=== PATIENT | male | born 1950 | race Caucasian/White ===

== ENCOUNTER 2017-05-31 10:29 | Inpatient (IN) ==
[~2017-05-31 10:29] MED LIST: Lidocaine -MPF 2% 2 ML VIAL ONE
[2017-05-31] MEDS ORDERED: *HR* Remifentanil 2 MG VIAL IVP ONE ×2 (10:37→15:05)
[2017-05-31] MEDS ORDERED: Lidocaine -MPF 4% 5 ML AMPUL ONE (10:38)
[2017-05-31] MEDS ORDERED: *HR* Rocuronium Bromide 50 MG/5 ML VIAL ONE (10:38)
[2017-05-31] MEDS ORDERED: Dexamethasone 4 MG/ML VIAL ONE (10:38)
[2017-05-31] MEDS ORDERED: *HR* Phenylephrine 10 MG/ML VIAL ONE (10:38)
[2017-05-31] MEDS ORDERED: Ondansetron 4 MG/2 ML VIAL ONE (10:38)
[2017-05-31] MEDS ORDERED: *HR* Succinylcholine 200 MG/10 ML VIAL IVP ONE (10:38)
[2017-05-31] MEDS ORDERED: Lidocaine -MPF 2% 2 ML VIAL ONE (10:38)
[2017-05-31] MEDS ORDERED: Lidocaine -MPF 1% 2 ML VIAL ID ONE (10:54)
[2017-05-31] MEDS ORDERED: Vancomycin 1,250 MG in D5% in Water 250 ML IVPB ONE ×3 (10:54→22:30)
[2017-05-31] MEDS ORDERED: Albuterol 2.5 MG/3 ML NEBULIZER IH ONE (10:54)
[2017-05-31] MEDS ORDERED: CeFAZolin Pre 2,000 MG/100 ML 2,000 MG/100 ML BAG IVPB ONE (10:54)
--- NOTE | 2017-05-31 10:54 | History & Physical Report ---
Date of Encounter: 05/31/17 Time of Encounter: 10:40 24 Hour HP Update - Instructions Instructions: If the History and Physical is less than 30 days old and was completed prior to A.M. admission and or procedure and has NOT been updated on calendar day of procedure please complete this update prior to performing procedure. - Update Patient reports changes in Medical Condition: No Changes in examination, assessment, or condition: No Changes in Medication: No Preop tests/diagnostics Reviewed: Yes Surgery Remains Indicated: Yes Consent for Planned Operative Procedure(s) Verified: Yes - Pre-Operative Checklist Preoperative Checklist Indicated: Yes Prophylactic Antibiotic Ordered: Yes (VANCOMYCIN DUE TO MRSA RISK) Home Medications Include Beta Kike: Yes Beta Kike Taken Today (Day of Surgery): Yes Beta Kike Taken Yesterday (Day Prior to Surgery): Yes
[2017-05-31] MEDS ORDERED: Ringers Solution, Lactated 1,000 ML IVC SCH (11:00)
[2017-05-31] MEDS ORDERED: *HR* FentaNYL (PF) 100 MCG/2 ML VIAL ONE ×2 (11:07→14:05)
[2017-05-31] MEDS ORDERED: *HR* Midazolam HCl 5 MG/5 ML VIAL IVP ONE (11:18)
[2017-05-31] MEDS ORDERED: *HR* Propofol 200 MG/20 ML VIAL IVP ONE (11:18)
--- NOTE | 2017-05-31 11:21 | Anesthesia Evaluation PreOp ---
Date of Encounter: 05/31/17 Time of Encounter: 11:10 - Past History Planned Operation: fem fem bypass graft Cardiac History: NH (Patient had an NH at some time, unknown to him. Underwent recent heart cath. 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 Significant HX Other Medical History: Diabetes Type II, GERD Anesthesia History: No Prior Anesthetic Complications, Past Anesthesia Alcohol Use: occasionally Drug use: marijuana Medications and Allergies Aspirin [Ecotrin] 325 mg PO DAILY 05/10/17 [History] Insulin Glargine [Lantus] 60 unit SQ DAILY 05/10/17 [History] OxyCODONE/APAP 5/325 [Percocet 5/325 MG] 1 each PO Q4HR PRN #30 tablet 05/10/17 [Rx] Clopidogrel Bisulfate [Plavix] 75 mg PO DAILY #30 tablet 05/22/17 [Rx] Metoprolol [Lopressor] 25 mg PO BID 05/31/17 [History] Allergies No Known Allergies Allergy (Verified 05/31/17 11:09) - Meds/Allergy Pre-op Review Medications Reviewed: Yes Allergies Reviewed: Yes Beta Blockers on Current Med List: Yes Anesthesia Results - Labs Laboratory Tests 05/18/17 05/22/17 05/22/17 12:08 14:53 14:53 Hgb 14.5 Plt Count 168 PT 12.6 H INR 1.2 Sodium 139 Potassium 3.9 Chloride 109 Carbon Dioxide 18 L BUN 14 Creatinine 0.89 - Imaging Additional studies: ECHO 56% EF, no ischemia, at target heart rate, hoowever a fixed perfusion defect identified. Underwent heart cath but only pharmacologic management intiated. Anesthesia Exam Selected Entries 05/31/17 10:58 Temperature 98.7 F Pulse Rate 89 Blood Pressure 145/72 O2 Sat by Pulse Oximetry 97 - HEENT Pupil (Motor): Pupils equal Mallampati: II (Full lo, single tooth in lower jaw.) Teeth: Edentulous Oral Opening: Greater than 3 - Cardiac Rhythm: Regular Murmur: None - Pulmonary Breath Sounds: bilateral Clear Anesthesia Assess/Plan ASA Score: 3 Modified Denton Scale for Level of Consciousness: Cooperative, oriented, and tranquil Anesthetic Plan: General Monitoring Plan: Standard Monitors, A-Line Recovery Plan: PACU
[2017-05-31] MEDS ORDERED: Heparin 1,000 UNITS/500 mL NS 1,000 ML ONE (11:35)
[2017-05-31 12:06] LABS: Hemoglobin A1C 5.4 %
[2017-05-31] MEDS ORDERED: *HR* Heparin 5,000 UNIT/ML VIAL ONE (13:19)
[2017-05-31] MEDS ORDERED: NiCARdipine 2.5 MG/10 ML Syringe IVPB ONE (13:20)
[2017-05-31] MEDS ORDERED: *HR* HYDROmorphone (PF) 1 MG/ML SYRINGE IVP PRN (13:27)
[2017-05-31] MEDS ORDERED: *HR* Labetalol 20 MG/4 ML SYRINGE IVP PRN ×2 (13:27→17:38)
[2017-05-31] MEDS ORDERED: Ondansetron 4 MG/2 ML VIAL IVP ONE (13:27)
--- NOTE | 2017-05-31 16:08 | Operative Note ---
Date of procedure: 05/31/17 Pre-op diagnosis: Peripheral vascular disease with rest pain Post-op diagnosis: same Procedure: 1. Right common and deep femoral endarterectomy. 2. Left iliofemoral and deep femoral endarterectomy. 3. Left to right femoral to femoral artery bypass with 6mm PTFE. 4. Right lower extremity angiogram. Complications: None Anesthesia: LULA Surgeon: Curtis Martinez Estimated blood loss (cc): 100 Specimen: right and left lower extremity plaque Condition: stable Disposition: PACU Procedure in Detail: Indications: The patient is a 67 year old male with severe peripheral vascular disease with right lower extremity rest pain and bilateral lower extremity disabling claudication. He underwent an angiogram and was found to have a right iliac artery occlusion and bilateral femoral to popliteal artery disease. The patient has been scheduled for revascularization to alleviate his symptoms and reduce his risk of limb loss. Procedure: The patient was identified in the preoperative area. The risks, benefits, and alternatives of the procedure were discussed. All questions were answered. The patient was taken to the operating room and placed in supine position on the operating room table. After the induction of general endotracheal anesthesia, he was cleaned and draped in normal sterile fashion. An oblique incision was made over the right groin sharply. Hemostasis was obtained with electrocautery. Through a process of blunt, sharp, and electrocautery dissection, the right femoral vessels were dissected circumferentially and surrounded with vessel loops. The patient received 5000 units of intravenous heparin and additional heparin throughout the procedure to maintain adequate anticoagulation. A large bore needle was used to cannulate the common femoral artery and a wire was passed through the needle. She needle was excahnged for a 6 tajik sheath. A retrograde angiogram was then performed via the sheath. This revealed an occluded right common iliac artery. Multiple attempts were made to cross the occlusion. However, the wire remained in the subintimal plane and would not enter the aortic lumen. Due to this, the decision was made to perform a left to right femoral to femoral artery bypass in order to restore inflow into the right femoral vessels. An oblique incision was then made over the left groin sharply. Hemostasis was obtained with electrocautery. Through a process of blunt, sharp, and electrocautery dissection, the left femoral vessels were dissected circumferentially and surrounded with vessel loops. A 6mm ring reinforced PTFE graft was tunneled between the right and left femoral incisions. A longitudinal arteriotomy was made in the left common femoral artery and extended into the deep femoral artery. Although pulsatile flow was noted from the external iliac artery, minimal retrograde flow was noted from the left deep femoral artery due to extensive stenositic common femoral and dep femoral artery plaque. Using a dental freer, a left distal external iliac artery endarterectomy, a left common femoral endarterectomy and a left deep femoral artery endarterectomy were then performed. The endpoints were inspected and no elevated flaps were noted. The lumen was flushed with heparinized saline. The graft was cut to fit the arteriotomy and then sutured in place with a running 6-0 Prolene. The vessels were flushed through the graft. Heparinized saline was infused into the graft lumen. The graft was clamped with an atraumatic clamp. Flow was restored in the left femoral vessels. The sheath and wire were removed from the right common femoral artery and the right external iliac artery was clamped. A longitudinal arteriotomy was then made in the common femoral artery and then extended into the deep femoral artery. The exposed a nearly occlusive right common and deep femoral artery plaque. Release of the veesl loop revealed minimal retrogade deep femoral artery flow. Using a dental freer, a right common femoral artery endarterectomy and a right deep femoral artery endarterectomy were performed. Proximal and distal endpoints were inspected and no elevated flaps were noted. Retrograde flow was noted from the deep femoral artery upon release of the loop. The vessel was flushed with heparinized saline. The graft was then cut to fit the arteriotomy. The graft was anastamosed with a running 6-0 Prolene. Prior to completing the anastamosis, the right femoral vessels were flushed through the graft anastamosis and heparin was infused into the lumen. The anastamosis was completed and flow was restored in the right lower extremity. Thrombin and gelfoam were used at the proximal anastamosis. Polyphasic signals were noted distal to the anastamoses. The wounds were irrigated with antibiotic-containing saline. Platelet rich and platelet poor plasma were infused into the wounds. Meticulous hemostasis was obtained throughout the wound with electrocautery. Wounds were reapproximated with layers of 2-0 and 3-0 Vicryl. Skin was reapproximated with 3-0 Monocryl. Sterile dressing was applied. The patient was extubated and taken to recovery room in stable condition.
[2017-05-31] MEDS ORDERED: *HR* Meperidine 25 MG/ML SYRINGE ONE (16:16)
--- NOTE | 2017-05-31 17:05 | Anesthesia Evaluation Post Op ---
Date of Encounter: 05/31/17 Time of Encounter: 17:05 - Vital Signs Vital Signs: Vital Signs/O2 Sat/Glucose, Most Current Temp Pulse Resp BP Pulse Ox 05/31/17 16:55 66 16 134/64 96 05/31/17 16:45 70 16 149/88 98 05/31/17 16:35 97.1 F L 75 16 141/84 97 05/31/17 16:25 82 16 145/70 95 05/31/17 16:15 88 20 158/72 99 05/31/17 16:05 97.0 F L 98 18 157/78 100 - Airway Airway: Non-obstructed - Cardiovascular Regular Rate - Mental Status Mental Status: Alert & Oriented, Answers Appropriately - Pain Pain Scale: 1 - Nausea Vomiting Nausea Vomiting: Not Present - Hydration Hydration: Ice chips, Pascal catheter - Discharge PostOp Status: Transfer Patient to floor (no anesthesia complications VSS)
[2017-05-31] MEDS ORDERED: Ondansetron 4 MG/2 ML VIAL IVP PRN (17:38)
[2017-05-31] MEDS ORDERED: Naloxone 0.4 MG/ML INJ IVP PRN (17:38)
[2017-05-31] MEDS ORDERED: Acetaminophen 325 MG TABLET PO PRN (17:38)
[2017-05-31] MEDS ORDERED: Dextrose Gel 15 GM PO PRN ×2 (17:38)
[2017-05-31] MEDS ORDERED: D5% in Water 1,000 ML IVC PRN (17:38)
[2017-05-31] MEDS ORDERED: *HR* HYDROcodone/Acet 5/325 mg TABLET PO PRN (17:38)
[2017-05-31] MEDS ORDERED: *HR* Dextrose 50 % in Water (Syg) 50 ML SYRINGE IVP PRN (17:38)
[2017-05-31] MEDS: *HR* OxyCODONE Immed Rel 5 MG TABLET PO PRN (17:51)
[2017-05-31] MEDS: *HR* Metoprolol 5 MG/5 ML VIAL IVP SCH ×2 (17:51→23:26)
[2017-05-31] MEDS: Insulin LISPRO 300 UNITS/3 ML VIAL SQ SCH (17:54)
[2017-05-31] MEDS: ceFAZolin 2,000 MG in D5% in Water 100 ML IVPB SCH (18:36)
[2017-05-31] MEDS: *HR* Morphine 2 MG/ML SYRINGE IVP PRN ×5 (18:42→23:25)
[2017-05-31] MEDS ORDERED: Insulin LISPRO 300 UNITS/3 ML VIAL SQ SCH (21:00)
[2017-06-01] MEDS: *HR* OxyCODONE Immed Rel 5 MG TABLET PO PRN (00:39)
[2017-06-01] MEDS: *HR* Morphine 2 MG/ML SYRINGE IVP PRN (00:40)
[2017-06-01] MEDS: ceFAZolin 2,000 MG in D5% in Water 100 ML IVPB SCH (01:06)
[2017-06-01 01:31] LABS: Basophils % 0.3 %; Eosinophils % 0.1 %; Hematocrit 38.3 % (37.5-50.1); Hemoglobin 12.9 g/dL (12.9-16.9); Immature Granulocytes % 0.5 % (0-4); Lymphocytes # 0.5 K/mcL (0.6-4.6); Lymphocytes % 5.1 %; Mean Corpuscular HGB Conc 33.7 g/dL (31.6-35.5); Mean Corpuscular Hemoglobin 30.9 pg (28.0-33.3); Mean Corpuscular Volume 91.8 fL (83.0-100.0); Monocytes # 0.5 K/mcL (0.0-1.3); Monocytes % 4.4 %; Neutrophils # 9.3 K/mcL (1.6-8.9); Platelet Count 177 K/mcL (140-400); Red Blood Count 4.17 M/mcL (4.19-5.50); Red Cell Distribution Width 13.4 % (11.5-14.5); Segmented Neutrophils % 89.6 %
[2017-06-01 01:45] LABS: BUN/Creatinine Ratio 14 (6-26); Blood Urea Nitrogen 17 mg/dL (8-26); Calcium 8.9 mg/dL (8.6-10.8); Carbon Dioxide 23 mEq/L (19-29); Chloride 104 mEq/L (98-109); Glucose 201 mg/dL (70-99); Osmolality,Calculated 289 (280-300); Potassium 4.3 mEq/L (3.5-4.5); Sodium 136 mEq/L (136-145); eGFR For African Americans > 60 (> 60); eGFR For Non-African Americans 59 (> 60)
[2017-06-01] MEDS: *HR* Metoprolol 5 MG/5 ML VIAL IVP SCH (05:59)
[2017-06-01] MEDS ORDERED: *HR* Heparin 5,000 UNIT/ML VIAL SQ SCH ×2 (06:00)
--- NOTE | 2017-06-01 07:42 | Discharge Summary ---
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 He reports that his rest pain has resolved. His feet are warm. He has pedal signals bilaterally. He will be discharged to day. (2) Atherosclerosis of lummi arteries of extremities with intermittent claudication, left leg Priority: Secondary Status: Chronic Comments: The patient has known bilateral superficial femoral artery occlusions. (3) Essential hypertension Priority: Secondary Status: Acute (4) Diabetes 1.5, managed as type 2 Priority: Secondary Status: Chronic Comments: The patient was counseled regasrding atheorsclerotic risk factor reduction. (5) Tobacco abuse Priority: Secondary Status: Chronic Comments: The patient was again counseled regarding the importance of smoking cessation. - Discharge Medications Prescriptions: RX: OxyCODONE/APAP 5/325 [Percocet 5/325 MG] 1 each PO Q4HR PRN #30 tablet PRN Reason: postoperative pain Home Medications: RX: Aspirin [Ecotrin] 325 mg PO DAILY 05/10/17 [History] RX: Insulin Glargine [Lantus] 60 unit SQ HS 05/10/17 [History] RX: Clopidogrel Bisulfate [Plavix] 75 mg PO DAILY #30 tablet 05/22/17 [Rx] RX: Metoprolol [Lopressor] 25 mg PO BID 05/31/17 [History] RX: OxyCODONE/APAP 5/325 [Percocet 5/325 MG] 1 each PO Q4HR PRN #30 tablet 06/01 [Rx] Allergies/Adverse Reactions: Allergies No Known Allergies Allergy (Verified 05/31/17 11:09) Date of admission: 05/31/17 17:31 Primary care physician: Tung Hernandez MD Procedure(s) Performed: Bilateral femoral artery endarterectomy and FEM-FEM bypass. Discharging clinician: Curtis Martinez Anticipated date of discharge: 06/01/17 - Patient Status Disposition: Home, Self-Care Condition: Good Functional capacity at discharge: independent ambulation Overall status at discharge: patient is back to baseline - Discharge Instructions Instructions: Oxycodone/Acetaminophen (By mouth), Peripheral Vascular Disorders (DC), Surgical Site Infections (GEN) Follow Up With: Curtis Martinez MD [Partnered Physician] - 07/12/17 1:30 pm Tung Hernandez MD [Primary Care Provider] - 06/08/17 11:30 am Additional Instructions: May remove bandage and shower on 06/02/17. Wash wounds gently and pat to dry. Apply dry gauze to wounds daily for 7 days. No tub baths or swimming until 06/29/17. Call Dr. Martinez at [phone] with questions or concerns. - Diet and Activity Activity: increase activity as tolerated Diet: diabetic diet - Hospital Course Hospital course: Mr. Escalona is a 67 year old male who was admitted on 05/31/17 and then taken to the operating room for a FEM-FEM bypass and bilateral femoral endarterectomy. The patient reported improvement on postoperative day #1. He was hemodynamically stable, his feet were warm and his incisions were healing. He was discharged in stable condition without complication. - Time Spent with Patient Total time spent providing and/or coordinating discharge services: Exam Vital Signs, Last 4 Hours Temp Pulse Resp BP Pulse Ox 06/01/17 07:32 98.4 F 75 17 103/60 95 General: Present: Conversant HEENT: Present: Pupils equal Neck: Absent: JVD Cardiac: Present: Reg Rate and Rhythm Lungs: Present: Normal Breath Sounds, No Wheeze, Rales, Rhonchi Neuro: Present: Alert and responsive, No focal deficits noted, Motor nerves grossly intact, Sensory nerves grossly intact Abdomen: Present: Soft, Non-tender Vascular: Present: Normal capillary refill, Pulse, diminished (pedal signals biphasic bilaterally), Color/Temperature (warm), Surgical incisions (no hematoma ). Absent: Cyanosis, Edema Skin: Present: No rashes noted on visualized skin - VTE Documentation of Mechanical Device: Intermittent pneumatic compression device
[2017-06-01] MEDS: Insulin LISPRO 300 UNITS/3 ML VIAL SQ SCH (07:56)
[2017-06-01] MEDS ORDERED: Aspirin Enteric Coated 325 MG Tablet PO SCH (09:00)
[2017-06-01 11:09] VITALS: BP 95/55
== END 2017-06-01 12:01 | disposition home or self-care (01) | DRG 272 ==
LOC: SAMDAY 10:29 → 2NNU 17:31
PROVIDERS: ADMIT Surgery; ATTEND Surgery

== ENCOUNTER 2018-08-30 06:00 | Inpatient (IN) ==
[~2018-08-30 06:00] MED LIST changes: -Lidocaine -MPF 2% 2 ML VIAL ONE; +Vancomycin 1,000 MG, Sodium Chloride IRRigation 1,000 ML IR ONE
[2018-08-30] MEDS ORDERED: CeFAZolin Syr 2,000MG/20 ML 2,000 MG/20 ML SYRINGE IVPB ONE (06:28)
[2018-08-30] MEDS ORDERED: Albuterol 2.5 MG/3 ML NEBULIZER IH ONE (06:28)
[2018-08-30] MEDS ORDERED: Albuterol 2.5 MG/3 ML NEBULIZER ONE (06:32)
[2018-08-30] MEDS ORDERED: *HR* FentaNYL (PF) 100 MCG/2 ML VIAL ONE ×2 (07:00→10:15)
[2018-08-30] MEDS ORDERED: Ondansetron 4 MG/2 ML VIAL ONE (07:00)
[2018-08-30] MEDS ORDERED: Lidocaine -MPF 2% 2 ML VIAL ONE (07:00)
[2018-08-30] MEDS ORDERED: *HR* Propofol 200 MG/20 ML VIAL IVP ONE (07:00)
[2018-08-30] MEDS ORDERED: *HR* Succinylcholine 200 MG/10 ML VIAL IVP ONE (07:00)
[2018-08-30] MEDS ORDERED: Lidocaine -MPF 4% 5 ML AMPUL ONE (07:03)
[2018-08-30] MEDS ORDERED: Dexamethasone 4 MG/ML VIAL ONE (07:03)
[2018-08-30] MEDS ORDERED: Lidocaine -MPF 0.5% 50 ML VIAL ONE (07:06)
[2018-08-30] MEDS ORDERED: *HR* Norepinephrine 4 MG/4 ML VIAL IVC ONE (07:06)
[2018-08-30] MEDS ORDERED: *HR* Vasopressin 20 UNIT/ML VIAL ONE (07:06)
--- NOTE | 2018-08-30 07:13 | Anesthesia Evaluation PreOp ---
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 Significant HX Other Medical History: Diabetes Type II, GERD Anesthesia History: No Prior Anesthetic Complications, Past Anesthesia Alcohol Use: rarely Drug use: marijuana Medications and Allergies Aspirin [Ecotrin] 325 mg PO DAILY 05/10/17 [History] metFORMIN [Glucophage] 1,000 mg PO BID 10/31/17 [History] Basaglar Kwikpen U-100 60 units SQ DAILY 08/30/18 [History] Fenofibrate Nanocrystallized [Triglide] 160 mg PO DAILY 08/30/18 [History] 3 Allergy/AdvReac Type Severity Reaction Status Date / Time No Known Allergies Allergy Verified 02/06/18 15:01 - Meds/Allergy Pre-op Review Medications Reviewed: Yes Allergies Reviewed: Yes Beta Blockers on Current Med List: No Anesthesia Results - Labs Laboratory Tests 01/26/17 08/27/18 08/27/18 09:38 15:36 15:36 WBC Hgb Hct Plt Count PT 11.6 INR 1.0 APTT 32.9 Sodium 138 Potassium 4.4 Chloride 108 H Carbon Dioxide 24 BUN 24 H POC Creatinine 1.30 Creatinine 1.37 H Est GFR (Non-Af Amer) 51 L Hemoglobin A1c 08/27/18 08/27/18 15:36 15:36 WBC 6.4 Hgb 14.1 Hct 43.1 Plt Count 210 PT INR APTT Sodium Potassium Chloride Carbon Dioxide BUN POC Creatinine Creatinine Est GFR (Non-Af Amer) Hemoglobin A1c 6.4 H - Imaging EKG: report reviewed (SINUS RHYTHM INFERIOR MYOCARDIAL INFARCTION, PROBABLY OLD) , image reviewed Additional studies: LEFT HEART CATH 05/2017 Stent w/ PTCA Single Major Vessel Indications: Abnormal Test - Stress, Pre op clearance Impressions: There is severe two vessel coronary artery disease. The left ventricle is normal and has mildly abnormal contractility EF 45% Patient had successful PTCA/Drug-Eluting Stent placement in the mid LAD. Coronary Dominance: right Lesion Findings/Interventions * Left Main Coronary Artery The LMCA is angiographically free of disease. * Left Anterior Descending There is a 20 mm long, 80% stenosis in the Mid LAD. The lesion has a KERWIN flow of 3. An intervention was performed on the Mid LAD with a final stenosis of 0%. There were no lesion complications. The final KERWIN flow was 3. * Circumflex The Circumflex is angiographically free of significant disease. The 1st Marginal is angiographically free of significant disease. * Right Coronary Artery There is a 80% stenosis in the Proximal RCA. There is a 95% stenosis in the Mid RCA. The lesion has collaterals which feed from left to right. There is a 95% stenosis in the Distal RCA. The lesion has collaterals which feed from left to right. Mid RCA and Distal RCA is one long diseased segment IMPRESSION: 1. Atherosclerosis with no abdominal aortic aneurysm. 2. Chronic right iliac arterial system occlusion. Prior bifemoral bypass with complete bypass occlusion. 3. Bilateral superficial femoral/popliteal artery occlusion with profunda femoral artery collaterals resulting in reconstitution of the distal popliteal artery. There is right lower extremity three-vessel runoff to the ankle and two-vessel runoff to the foot. Left lower extremity three-vessel runoff to the foot. 4. Severe hepatic steatosis. Cholelithiasis without evidence of acute cholecystitis or biliary obstruction. 5. Nonspecific borderline mildly enlarged upper abdominal lymph nodes. The patient has a history of lymphoma. The lymph nodes are stable compared to a prior PET/CT 08/20/2014. 6. Mild symmetric plantar feet muscular atrophy consistent with polyneuropathy.. Anesthesia Exam Vital Signs/O2 Sat/Glucose, Most Recent Temp Pulse Resp BP Pulse Ox 98.0 F 86 18 148/72 97 08/30/18 06:26 08/30/18 06:26 08/30/18 06:49 08/30/18 06:49 08/30/18 06:49 Blood Glucose* 125 Height: 1.7 m Weight: 84 kg NPO (# of Hours): > 8 hr - HEENT Pupil (Motor): Pupils equal Mallampati: II Teeth: Missing, Poor dentition Oral Opening: Greater than 3 - CRATE REPAIRER LOC: Oriented CRATE REPAIRER Motor: Normal RUE, Normal LUE, Normal RLE, Normal LLE, Normal Face CRATE REPAIRER Sensory: Normal: RUE, LUE, RLE, LLE, Face - Cardiac Rhythm: Regular Murmur: None - Pulmonary Breath Sounds: bilateral Clear Respiratory Effort: Symmetrical Anesthesia Assess/Plan ASA Score: 4 Modified Denton Scale for Level of Consciousness: Cooperative, oriented, and tranquil Anesthetic Plan: General Monitoring Plan: Standard Monitors, A-Line Recovery Plan: PACU
[2018-08-30] MEDS ORDERED: Acetaminophen IV 1,000 MG/100 ML INFUS..BTL IVPB ONE (07:17)
[2018-08-30] MEDS ORDERED: Famotidine 20 MG/2 ML VIAL IVP ONE (07:17)
[2018-08-30] MEDS ORDERED: Heparin 1,000 UNITS/500 mL 1,500 ML ONE (07:25)
[2018-08-30] MEDS ORDERED: Vancomycin 1,000 MG VIAL ONE (07:25)
[2018-08-30] MEDS ORDERED: Lidocaine 1% 20 ML MDV ONE (07:25)
--- NOTE | 2018-08-30 07:28 | History & Physical Report ---
Date of Encounter: 08/30/18 Time of Encounter: 07:20 24 Hour HP Update - Instructions Instructions: If the History and Physical is less than 30 days old and was completed prior to A.M. admission and or procedure and has NOT been updated on calendar day of procedure please complete this update prior to performing procedure. - Update Patient reports changes in Medical Condition: No Changes in examination, assessment, or condition: No Changes in Medication: No Preop tests/diagnostics Reviewed: Yes Surgery Remains Indicated: Yes Consent for Planned Operative Procedure(s) Verified: Yes - Pre-Operative Checklist Preoperative Checklist Indicated: Yes Prophylactic Antibiotic Ordered: Yes (vancomycin due to MRSA risk) Home Medications Include Beta Kike: No Beta Kike Taken Today (Day of Surgery): No Beta Kike Taken Yesterday (Day Prior to Surgery): No Is VTE Prophylaxis Indicated?: Yes
[2018-08-30] MEDS ORDERED: Aspirin 81 MG TAB.CHEW PO ONE (07:30)
[2018-08-30] MEDS ORDERED: KETAMINE HCL 50 MG/ML SYRINGE IV ONE (07:35)
[2018-08-30] MEDS: Ringers Solution, Lactated 1,000 ML IVC SCH ×2 (07:42→11:18)
[2018-08-30] MEDS ORDERED: *HR* Midazolam HCl 2 MG/2 ML VIAL ONE (07:43)
[2018-08-30] MEDS ORDERED: *HR* PHENYLEPHRINE 1,000 MCG/10 ML SYRINGE IVP ONE (08:13)
[2018-08-30] MEDS ORDERED: *HR* Phenylephrine 10 MG/ML VIAL ONE (08:29)
[2018-08-30] MEDS ORDERED: *HR* Heparin 5,000 UNIT/ML VIAL ONE (09:25)
[2018-08-30] MEDS ORDERED: *HR* HYDROmorphone (PF) 1 MG/ML SYRINGE IVP PRN (09:31)
[2018-08-30] MEDS ORDERED: *HR* OxyCODONE Immed Rel 5 MG TABLET PO PRN ×2 (09:31→11:41)
[2018-08-30] MEDS ORDERED: *HR* Promethazine 25 MG/ML VIAL IVP PRN (09:31)
[2018-08-30] MEDS ORDERED: *HR* Labetalol 20 MG/4 ML SYRINGE IVP PRN ×2 (09:31→11:41)
[2018-08-30] MEDS ORDERED: *HR* Meperidine 25 MG/ML SYRINGE IVP PRN (09:31)
[2018-08-30] MEDS ORDERED: Ondansetron 4 MG/2 ML VIAL IVP ONE (09:31)
--- NOTE | 2018-08-30 10:49 | Operative Note ---
Date of procedure: 08/30/18 Pre-op diagnosis: Peripheral vascular disease with disabling claudication Post-op diagnosis: same Procedure: Femoral-femoral bypass graft thrombectomy with revision of the right femoral anastomosis. Complications: None Anesthesia: GETA Surgeon: Curtis Martinez Was there an engineer assistant present: No Estimated blood loss (cc): 100 Specimen: Graft thrombus Condition: stable Disposition: PACU Procedure in Detail: Indications: The patient is a 68-year-old male with a history of severe peripheral vascular disease. He is previously undergone a femoral to femoral artery bypass graft placement due to a right iliac artery occlusion. The patient presented with recurrent symptoms of disabling claudication and rest pain in the right foot. He was taken to the operating room for thrombectomy of his bypass graft with possible revision. Procedure: The patient was identified in the preoperative area. The risks, benefits and alternatives were discussed and all questions were answered. The patient was taken to the operating room and placed in the supine position on the operating room table. After the induction of general endotracheal anesthesia, the patient was cleaned and draped in the normal sterile fashion. An oblique incision was made sharply through his right groin scar overlying the femoral vessels. Hemostasis was obtained with electrocautery. Through a process of blunt, sharp and electrocautery dissection, the right distal external iliac, deep and superficial femoral arteries were dissected and surrounded with vessel loops. The graft was also dissected and surrounded with vesel loops. The patient received a 5000 unit bolus of heparin. After waiting adequate time or the heparin to circulate, the vessels were occluded with the vessel loops. A longitudinal arteriotomy was made through the graft anastamosis and extended distally into the [place] common femoral artery. No flow was noted on release of the loops. A 4 [place] marcos catheter was passed through the bypass graft and inflated. It was withdrawn and some acute thrombus and chronic embolic material was retrieved. This was sent to pathology. A 5-[place] catheter was then passed through the graft and withdrawn. Brisk pulsatile flow was noted at this time. Additional passes of the catheter resulted in no additional thrombus or embolus proximally. A 4 [place] marcos catheter was passed distally and thrombus was retrieved from the deep femoral artery. Significant retrograde flow was noted from the deep femoral artery. The vessels and graft were flushed with heparin. Intimal hyperplasia was noted to be present along the anastamosis. Using a dental freer, an endarectomy was performed. A Hemashield patch was used to reapproximate the edges of the previously incised graft and [place] common femoral artery with a running 6-0 prolene. Prior to completing the patch, the vessels were flushed, the graft was flushed and heparin was infused into the lumen. Flow was restored in the [place] vessels and graft. Polyphasic signals were identified distal to the anastomosis. The wound was irrigated with antibiotic containing saline. Hemostasis was obtained with electrocautery. The wound was reapproximated with 2-0 and 3-0 vicryl. Skin was reapproximated with 3-0 Monocryl. Sterile dressings were applied. The patient was extubated and taken to the recover room in stable condition.
--- NOTE | 2018-08-30 11:12 | Anesthesia Evaluation Post Op ---
Date of Encounter: 08/30/18 Time of Encounter: 11:12 - Vital Signs Vital Signs: Vital Signs/O2 Sat/Glucose, Most Recent Temp Pulse Resp BP Pulse Ox 98.0 F 67 18 102/42 94 08/30/18 10:49 08/30/18 10:49 08/30/18 10:49 08/30/18 10:49 08/30/18 10:49 Blood Glucose* 152 - Lungs Lungs: Clear Ascult./Percussion - Airway Airway: Non-obstructed - Cardiovascular Regular Rate - Mental Status Mental Status: Alert & Oriented, Answers Appropriately - Pain Pain Scale: 2 - Nausea Vomiting Nausea Vomiting: Not Present - Hydration Hydration: NPO - Discharge PostOp Status: Transfer Patient to floor
[2018-08-30] MEDS ORDERED: *HR* HYDROcodone/Acet 5/325 mg TABLET PO PRN (11:41)
[2018-08-30] MEDS ORDERED: Acetaminophen 325 MG TABLET PO PRN (11:41)
[2018-08-30] MEDS ORDERED: *HR* Dextrose 50 % in Water (Syg) 50 ML SYRINGE IVP PRN (11:41)
[2018-08-30] MEDS ORDERED: Dextrose Gel 15 GM/37.5 ML TUBE PO PRN ×2 (11:41)
[2018-08-30] MEDS ORDERED: Naloxone 0.4 MG/ML INJ IVP PRN (11:41)
[2018-08-30] MEDS ORDERED: D5% in Water 1,000 ML IVC PRN (11:41)
[2018-08-30] MEDS ORDERED: Ondansetron 4 MG/2 ML VIAL IVP PRN (11:41)
[2018-08-30] MEDS ORDERED: 0.9 % Sodium Chloride 1,000 ML IVC SCH (11:41)
[2018-08-30] MEDS: *HR* Metoprolol 5 MG/5 ML VIAL IVP SCH ×3 (12:03→23:04)
[2018-08-30] MEDS: Insulin LISPRO 300 UNITS/3 ML VIAL SQ SCH ×2 (12:03→15:41)
[2018-08-30] MEDS ORDERED: Insulin LISPRO 300 UNITS/3 ML VIAL SQ SCH (21:00)
[2018-08-31] MEDS: *HR* Metoprolol 5 MG/5 ML VIAL IVP SCH (05:07)
[2018-08-31 05:42] LABS: Basophils % 0.2 %; Hematocrit 34.3 % (37.5-50.1); Immature Granulocytes % 0.6 % (0-4); Lymphocytes % 11.1 %; Mean Corpuscular HGB Conc 32.7 g/dL (31.6-35.5); Mean Corpuscular Hemoglobin 29.1 pg (28.0-33.3); Mean Corpuscular Volume 89.1 fL (83.0-100.0); Monocytes # 0.8 K/mcL (0.0-1.3); Monocytes % 8.7 %; Neutrophils # 6.8 K/mcL (1.6-8.9); Platelet Count 177 K/mcL (140-400); Red Blood Count 3.85 M/mcL (4.19-5.50); Red Cell Distribution Width 13.1 % (11.5-14.5); Segmented Neutrophils % 79.4 %
[2018-08-31 05:48] LABS: Hemoglobin 11.2 g/dL (12.9-16.9)
[2018-08-31] MEDS ORDERED: *HR* Heparin 5,000 UNIT/ML VIAL SQ SCH ×2 (06:00)
[2018-08-31 06:02] LABS: BUN/Creatinine Ratio 16 (6-26); Blood Urea Nitrogen 19 mg/dL (8-23); Calcium 8.4 mg/dL (8.6-10.3); Carbon Dioxide 21 mEq/L (23-29); Chloride 111 mEq/L (98-107); Glucose 146 mg/dL (70-105); Osmolality,Calculated 293 (280-300); Potassium 3.8 mEq/L (3.5-5.1); Sodium 139 mEq/L (136-145); eGFR For Non-African Americans 59 (> 60)
--- NOTE | 2018-08-31 07:29 | Discharge Summary ---
Orders not resulted at time of discharge: Pending orders 08/27/18 15:36 Red Blood Cells [BBK] Routine 08/30/18 10:11 Surgical Pathology [PTH] Routine Date of Encounter: 08/31/18 Time of Encounter: 08:15 - Discharge Diagnosis (1) Atherosclerosis of [place] arteries of extremities with intermittent claudication, left leg Priority: Primary Status: Chronic Comments: The patient is postoperative day #1 after a femoral to femoral artery bypass graft thrombectomy with revision. His incisions are healing well, his feet are warm, pedal signals are present bilaterally, his compartments are soft and his pain is well-controlled. He will be discharged today. (2) Tobacco abuse Priority: Secondary Status: Chronic (3) Essential hypertension Priority: Secondary Status: Acute (4) Diabetes 1.5, managed as type 2 Priority: Secondary Status: Chronic (5) Acute blood loss anemia Priority: Secondary Status: Acute Comments: The patient has acute expected postoperative blood loss anemia. He is hemodynamically stable without evidence of ongoing blood loss. - Hospital Course Hospital course: Mr. Escalona is a 68 year old male with a history of peripheral vascular disease with disabling claudication, coronary artery disease, chronic kidney disease, diabetes and tobacco abuse. The patient was admitted and taken to the operating room where he underwent a femoral to femoral artery bypass graft thrombectomy.. He tolerated the procedure well. On postoperative day #1 he was hemodynamically stable without evidence of ongoing blood loss. His exam was unremarkable. He was discharged home in stable condition on postoperative day #1 without complications. Time spent discussing smoking cessation with patient: 3 to 10 minutes - Time Spent with Patient Total time spent providing and/or coordinating discharge services: - Discharge Medications Prescriptions: RX: OxyCODONE/APAP 5/325 [Percocet 5/325 MG] 1 each PO Q6HR PRN 7 Days #25 tablet PRN Reason: Postoperative pain Home Medications: RX: Aspirin [Ecotrin] 325 mg PO DAILY 05/10/17 [History] RX: metFORMIN [Glucophage] 1,000 mg PO BID 10/31/17 [History] RX: Fenofibrate Nanocrystallized [Triglide] 160 mg PO DAILY 08/30/18 [History] RX: Insulin Glargine,Hum.rec.anlog [Giancarloaglar Kwikpen U-100] 60 unit SQ QPM 08/30/18 [History] RX: OxyCODONE/APAP 5/325 [Percocet 5/325 MG] 1 each PO Q6HR PRN 7 Days #25 tablet 08/31/18 [Rx] Allergies/Adverse Reactions: Allergy/AdvReac Type Severity Reaction Status Date / Time No Known Allergies Allergy Verified 02/06/18 15:01 Date of admission: 08/30/18 11:48 Primary care physician: Tung Hernandez MD Procedure(s) Performed: Femoral to femoral artery bypass graft thrombectomy with revision of the right femoral anastomosis. Discharging clinician: Curtis Martinez Anticipated date of discharge: 08/31/18 Exam Vital Signs, Last 4 Hours Temp Pulse Resp BP Pulse Ox 08/31/18 04:05 70 15 120/61 93 08/31/18 03:59 98.0 F General: Present: Conversant HEENT: Present: Pupils equal Cardiac: Present: Reg Rate and Rhythm Lungs: Present: Normal Breath Sounds Neuro: Present: Alert and responsive, No focal deficits noted Abdomen: Present: Soft Vascular: Present: Normal capillary refill, Surgical incisions (Clean, dry, no hematoma), Other (Pedal signals are present bilaterally). Absent: Cyanosis, Edema Skin: Present: No rashes noted on visualized skin - Patient Status Disposition: Home, Self-Care Condition: Good Functional capacity at discharge: independent ambulation Overall status at discharge: patient is back to baseline - Discharge Instructions Instructions: Oxycodone/Acetaminophen (By mouth), How to Stop Smoking (DC), Cigarette Smoking and Your Health (GEN), Femoropopliteal Bypass (DC), Peripheral Vascular Disorders (DC), Peripheral Vascular Disorders (GEN), Peripheral Vascular Disease, Certified Indoor Environmentalist (GEN) Follow Up With: Curtis Martinez MD [Partnered Physician] - 09/25/18 2:00 pm (Follow Up w/ Dr. Martinez) Tung Hernandez MD [Primary Care Provider] - - Diet and Activity Activity: increase activity as tolerated Diet: advance to your usual diet
[2018-08-31] MEDS ORDERED: Aspirin Enteric Coated 325 MG Tablet PO SCH (09:00)
[2018-08-31] MEDS ORDERED: Fenofibrate 54 MG TABLET PO SCH (09:00)
[2018-08-31] MEDS: Insulin LISPRO 300 UNITS/3 ML VIAL SQ SCH (09:27)
[2018-08-31 11:37] VITALS: BP 137/79
== END 2018-08-31 12:05 | disposition home or self-care (01) | DRG 253 ==
LOC: SAMDAY 06:00 → ICNU 11:48
PROVIDERS: ADMIT Surgery; ATTEND Surgery

== ENCOUNTER 2018-12-19 13:47 | Inpatient (IN) ==
[2018-12-19] MEDS ORDERED: CeFAZolin Syr 2,000MG/20 ML 2,000 MG/20 ML SYRINGE IVPB ONE (14:13)
[2018-12-19] MEDS ORDERED: Albuterol 2.5 MG/3 ML NEBULIZER IH ONE (14:15)
[2018-12-19] MEDS ORDERED: Ringers Solution, Lactated 1,000 ML IVC SCH ×2 (14:15→14:45)
--- NOTE | 2018-12-19 14:20 | Anesthesia Evaluation PreOp ---
Date of Encounter: 12/19/18 Time of Encounter: 14:18 - Past History Planned Operation: fem-fem thrombectomy Cardiac History: HTN, Hyperlipidemia, Cardiac Stent (stent RCA 2016), Other (PAD) Pulmonary History: Smoker (1.5 ppd x 40+ yrs), COPD (not O2 dependent) SOUND CONTROLLER History: Denies Any Significant HX Other Medical History: Renal (CKD), Diabetes Type II Anesthesia History: No Prior Anesthetic Complications, Past Anesthesia (multiple vascular sx) Alcohol Use: rarely Drug use: marijuana Medications and Allergies Aspirin [Ecotrin] 325 mg PO DAILY 05/10/17 [History] Fenofibrate Nanocrystallized [Triglide] 160 mg PO DAILY 08/30/18 [History] Insulin Glargine,Hum.rec.anlog [Basaglar Kwikpen U-100] 60 unit SQ QPM 08/30/18 [History] Atorvastatin [Lipitor] 40 mg PO HS 12/19/18 [History] Clopidogrel [Plavix] 75 mg PO DAILY 12/19/18 [History] Metformin HCl [Glucophage] 1,000 mg PO DAILY 12/19/18 [History] Metoprolol Succinate [Toprol Xl] 25 mg PO DAILY 12/19/18 [History] Pregabalin [Lyrica] 75 mg PO DAILY 12/19/18 [History] Allergy/AdvReac Type Severity Reaction Status Date / Time No Known Allergies Allergy Verified 12/19/18 14:18 - Meds/Allergy Pre-op Review Medications Reviewed: Yes Allergies Reviewed: Yes Beta Blockers on Current Med List: Yes If Beta Blockers taken, Date/Time (Last Dose taken): 12-18 at 1430 Anesthesia Results - Labs Laboratory Tests 12/18/18 12/18/18 11:04 11:04 Hgb 14.4 Hct 42.9 Plt Count 235 Sodium 139 Potassium 4.3 BUN 31 H Creatinine 1.48 H - Imaging Additional studies: CTA: IMPRESSION: 1. No significant change from the prior exam. 2. 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 3. Chronic thrombosis of the femoral-femoral bypass graft. 4. Chronic thrombosis of the superficial femoral artery bilaterally. 5. Patent left profunda femoral artery with collateral flow at the knee and patent three vessel runoff in the left leg and two vessel runoff in the left foot. 6. Right epigastric collateral vessel feeds the right profunda femoral artery with collateral flow at the knee and patent three vessel runoff in the right leg and two vessel runoff in the right foot. Anesthesia Exam Weight: 81kg NPO (# of Hours): 8 - HEENT Pupil (Motor): EOMI Mallampati: II Teeth: Missing, Poor dentition Oral Opening: Greater than 3 - SOUND CONTROLLER LOC: Oriented SOUND CONTROLLER Motor: Normal RUE, Normal LUE, Normal RLE, Normal LLE, Normal Face SOUND CONTROLLER Sensory: Normal: RUE, LUE, RLE, LLE, Face - Cardiac Rhythm: Regular Murmur: None - Pulmonary Breath Sounds: bilateral Clear (end exir wheezes b/l) Respiratory Effort: Symmetrical Anesthesia Assess/Plan ASA Score: 3 Level of consciousness: Cooperative, Oriented Anesthetic Plan: General Monitoring Plan: Standard Monitors Recovery Plan: PACU (agrees to GA. May place a-line if needed intraop)
[2018-12-19] MEDS ORDERED: Metoprolol XL (24 HR) Succ 25 MG TAB.ER.24H PO STA (14:24)
[2018-12-19] MEDS ORDERED: traMADol 50 MG TABLET PO PRN (14:33)
[2018-12-19] MEDS ORDERED: *HR* HYDROcodone/Acet 7.5/325 mg TABLET PO PRN (14:33)
[2018-12-19] MEDS ORDERED: *HR* HYDROmorphone (PF) 1 MG/ML SYRINGE IVP PRN (14:34)
[2018-12-19] MEDS ORDERED: *HR* Promethazine 25 MG/ML VIAL IVP PRN (14:34)
[2018-12-19] MEDS ORDERED: *HR* Rocuronium Bromide 50 MG/5 ML VIAL ONE (15:44)
[2018-12-19] MEDS ORDERED: Dexamethasone 4 MG/ML VIAL ONE (15:44)
[2018-12-19] MEDS ORDERED: Lidocaine -MPF 2% 2 ML VIAL ONE (15:44)
[2018-12-19] MEDS ORDERED: *HR* Succinylcholine 200 MG/10 ML VIAL IVP ONE (15:44)
[2018-12-19] MEDS ORDERED: Ondansetron 4 MG/2 ML VIAL ONE (15:44)
[2018-12-19] MEDS ORDERED: *HR* Propofol 200 MG/20 ML VIAL IVP ONE (15:45)
[2018-12-19] MEDS ORDERED: *HR* Midazolam HCl 2 MG/2 ML VIAL ONE (15:45)
[2018-12-19] MEDS ORDERED: *HR* FentaNYL (PF) 100 MCG/2 ML VIAL ONE ×2 (15:45→20:53)
[2018-12-19] MEDS ORDERED: Lidocaine -MPF 4% 5 ML AMPUL ONE (16:11)
[2018-12-19] MEDS ORDERED: Aminoglycoside Consult 1 EACH MC ONE (16:16)
[2018-12-19] MEDS ORDERED: Bupivacaine-MPF 0.25% 10 ML VIAL ONE (16:24)
[2018-12-19] MEDS ORDERED: Heparin 1,000 UNITS/500 mL 1,500 ML ONE (16:24)
[2018-12-19] MEDS ORDERED: Vancomycin 1,000 MG VIAL ONE (16:25)
[2018-12-19] MEDS ORDERED: Isovue-300 150 ML INFUS..BTL ONE (17:03)
--- NOTE | 2018-12-19 17:04 | History & Physical Report ---
Date of Encounter: 12/19/18 Time of Encounter: 16:40 24 Hour HP Update - Instructions Instructions: If the History and Physical is less than 30 days old and was completed prior to A.M. admission and or procedure and has NOT been updated on calendar day of procedure please complete this update prior to performing procedure. - Update Patient reports changes in Medical Condition: No Changes in examination, assessment, or condition: No Changes in Medication: No Preop tests/diagnostics Reviewed: Yes Surgery Remains Indicated: Yes Consent for Planned Operative Procedure(s) Verified: Yes - Pre-Operative Checklist Preoperative Checklist Indicated: Yes Prophylactic Antibiotic Ordered: Yes (vancomycin due to risk of MRSA) Home Medications Include Beta Kike: Yes Beta Kike Taken Today (Day of Surgery): Yes Beta Kike Taken Yesterday (Day Prior to Surgery): Yes Is VTE Prophylaxis Indicated?: Yes
[2018-12-19] MEDS ORDERED: *HR* PHENYLEPHRINE 1,000 MCG/10 ML SYRINGE IVP ONE (17:59)
[2018-12-19] MEDS ORDERED: *HR* Heparin 5,000 UNIT/ML VIAL ONE (19:16)
[2018-12-19] MEDS ORDERED: Neostigmine Methylsulfate 3 MG/3 ML SYRINGE ONE (20:09)
[2018-12-19] MEDS ORDERED: Protamine Sulfate 50 MG/5 ML VIAL IVP ONE (20:28)
--- NOTE | 2018-12-19 21:18 | Operative Note ---
Date of procedure: 12/19/18 Pre-op diagnosis: Peripheral vascular disease with ulceration Post-op diagnosis: same Procedure: 1. Left femoral artery to right femoral artery bypass graft thrombectomy with revision of the distal anastomosis. 2. Right deep femoral endarterectomy with Hemashield patch angioplasty. Complications: None Anesthesia: GETA Surgeon: Curtis Martinez Was there an assistant spa director present: No Estimated blood loss (cc): 150 Specimen: Right lower extremity thrombus and plaque Condition: stable Disposition: PACU Procedure in Detail: Indications: The patient is a 68 year old male with multiple medical comorbidities including diabetes, chronic kidney disease, coronary artery disease and tobacco abuse. The patient also has a history of peripheral vascular disease. He is previously undergone a femoral to femoral artery bypass graft. The patient developed nonhealing ulcers on the right foot. He completed the rest pain and disabling claudication. Imaging revealed occlusion of his bypass graft as well as severe stenosis of the right deep femoral artery. Revascularization was recommended to alleviate his symptoms, promote healing and reduce his risk of limb loss. Procedure: The patient was identified in the preoperative area. The risks, benefits, and alternatives of procedure were discussed and all questions were answered. He was taken to the operating room and placed in supine position on the operating room table. After the induction of general endotracheal anesthesia, he was cleaned and draped in normal sterile fashion. An oblique incision was made along the right groin through his previous scar sharply. He mostasis was obtained with electrocautery. Through a process of blunt and sharp electrocautery dissection, the skin and subcutaneous tissues were incised and the the common femoral artery, deep femoral artery and superficial femoral artery were dissected circumferentially and surrounded with vessel loops. The distal limb of the bypass graft was also dissected circumferentially and surrounded with vessel loops. The patient received 5000 units of heparin intravenously and additional heparin throughout the case to maintain adequate anticoagulation. The vessels were occluded. A longitudinal arteriotomy was made through the [place] of the bypass graft and into the deep femoral artery. No flow was identified on release of the vessel loops. A 4-Uzbek Valorie embolus to be catheter was passed through the graft into the left femoral vessels. The balloon was inflated and withdrawn. Significant thrombus was retrieved and some was sent to pathology. Multiple passes were performed and after 2 negative passes, strong pulsatile flow was noted through the graft. The graft was flushed with heparinized saline and then occluded. The deep femoral artery incision was extended through the level of the first set of branches. Using a dental freer an endarterectomy was performed on the femoral artery. The distal endpoint was inspected and no elevated flaps were noted. The vessel was then noted to have significant retrograde flow. The lumen was flushed with heparinized saline and tension was applied to the vessel loop. The graft was noted to be kinked at the level of the distal anastomosis. This was due to redundant graft. The excess graft was excised in order to revise the distal anastomosis. A Hemashield patch was cut to fit the revise the graftotomy and deep femoral arteriotomy. The patch was sutured in place with running 6-0 Prolene. Prior to completing the patch anastomosis, each vessel was flushed individually, then reoccluded. Heparinized saline was infused into the lumen. The patch was completed and flow was restored. Thrombin and Gelfoam were used to aid in hemostasis. Polyphasic signal was noted distal to the distal end of the patch as well as the posterior tibial artery. Wound was irrigated with antibiotic-containing saline. Platelet-rich and platelet-poor plasma were infused into the wound. The wounds were reapproximated with layer of 2-0 Vicryl followed by two layers of 3-0 and Vicryl 3-0 Monocryl in the subcuticular layer. Sterile dressings were applied. The patient was extubated and taken to recovery room in stable condition.
[2018-12-19] MEDS ORDERED: *HR* Labetalol 20 MG/4 ML SYRINGE IVP PRN (21:47)
[2018-12-19] MEDS ORDERED: Ondansetron 4 MG/2 ML VIAL IVP PRN (21:47)
[2018-12-19] MEDS ORDERED: Insulin LISPRO 300 UNITS/3 ML VIAL SQ SCH (21:47)
[2018-12-19] MEDS ORDERED: *HR* Dextrose 50 % in Water (Syg) 50 ML SYRINGE IVP PRN (21:47)
[2018-12-19] MEDS ORDERED: D5% in Water 1,000 ML IVC PRN (21:47)
[2018-12-19] MEDS ORDERED: Acetaminophen 325 MG TABLET PO PRN (21:47)
[2018-12-19] MEDS ORDERED: Dextrose Gel 15 GM/37.5 ML TUBE PO PRN ×2 (21:47)
[2018-12-19] MEDS ORDERED: Naloxone 0.4 MG/ML INJ IVP PRN (21:47)
[2018-12-19] MEDS ORDERED: 0.9 % Sodium Chloride 1,000 ML IVC SCH (21:47)
--- NOTE | 2018-12-19 22:09 | Anesthesia Evaluation Post Op ---
Date of Encounter: 12/19/18 Time of Encounter: 21:28 - Vital Signs Vital Signs: Vital Signs/O2 Sat, Most Current Temp Pulse Resp BP Pulse Ox 97.8 F 68 19 147/74 98 12/19/18 21:41 12/19/18 21:41 12/19/18 21:41 12/19/18 21:41 12/19/18 21:41 - Lungs Lungs: Clear Ascult./Percussion - Airway Airway: Non-obstructed - Cardiovascular Regular Rate - Mental Status Mental Status: Alert & Oriented, Answers Appropriately - Pain Pain Scale used: Numeric (1 - 10) (tolerable) - Nausea Vomiting Nausea Vomiting: Not Present - Hydration Hydration: Tolerates oral liquids - Discharge PostOp Status: Transfer Patient to floor
[2018-12-19] MEDS: *HR* OxyCODONE Immed Rel 5 MG TABLET PO PRN (22:20)
[2018-12-19] MEDS: *HR* Metoprolol 5 MG/5 ML VIAL IVP SCH (22:54)
[2018-12-19] MEDS: *HR* HYDROcodone/Acet 5/325 mg TABLET PO PRN (23:19)
[2018-12-19] MEDS: Beer can PO SCH (23:46)
[2018-12-20] MEDS: *HR* Metoprolol 5 MG/5 ML VIAL IVP SCH ×2 (01:03→04:28)
[2018-12-20] MEDS: *HR* OxyCODONE Immed Rel 5 MG TABLET PO PRN ×2 (04:28→10:20)
[2018-12-20 04:47] LABS: Basophils % 0.4 %; Eosinophils % 0.1 %; Hematocrit 40.3 % (37.5-50.1); Hemoglobin 12.9 g/dL (12.9-16.9); Immature Granulocytes % 0.3 % (0-4); Lymphocytes # 1.2 K/mcL (0.6-4.6); Lymphocytes % 12.8 %; Mean Corpuscular Hemoglobin 29.3 pg (28.0-33.3); Mean Corpuscular Volume 91.6 fL (83.0-100.0); Mean Platelet Volume 11.1 fL (9.4-12.4); Monocytes # 0.7 K/mcL (0.0-1.3); Monocytes % 7.7 %; Red Cell Distribution Width 14.3 % (11.5-14.5); Segmented Neutrophils % 78.7 %
[2018-12-20 05:08] LABS: BUN/Creatinine Ratio 16 (6-26); Blood Urea Nitrogen 22 mg/dL (8-23); Calcium 8.9 mg/dL (8.6-10.3); Carbon Dioxide 22 mEq/L (23-29); Chloride 107 mEq/L (98-107); Glucose 117 mg/dL (70-105); Osmolality,Calculated 288 (280-300); Potassium 4.6 mEq/L (3.5-5.1); Sodium 137 mEq/L (136-145); eGFR For Non-African Americans 51 (> 60)
[2018-12-20 05:15] LABS: Neutrophils # 7.2 K/mcL (1.6-8.9)
[2018-12-20 05:17] LABS: Platelet Count 176 K/mcL (140-400)
[2018-12-20 05:22] LABS: Large Platelets Present (Not Present); Platelet Estimate Normal (Normal)
[2018-12-20] MEDS ORDERED: *HR* Heparin 5,000 UNIT/ML VIAL SQ SCH ×2 (06:00)
[2018-12-20] MEDS ORDERED: Vancomycin 0 MG in D5% in Water 250 ML IVPB ONE (06:00)
--- NOTE | 2018-12-20 07:22 | Discharge Summary ---
Orders not resulted at time of discharge: Pending orders 12/18/18 12:00 Red Blood Cells [BBK] Routine 12/19/18 21:10 Surgical Pathology [PTH] Routine Date of Encounter: 12/20/18 Time of Encounter: 09:45 - Discharge Diagnosis (1) Atherosclerosis of [place] arteries of right leg with ulceration of other part of foot Priority: Primary Status: Chronic Comments: The patient is postoperative day #1 after femoral to femoral artery bypass graft thrombectomy with revision and right deep femoral endarterectomy. He reports his right leg feels much better. He has a warm right foot. He has strong pedal signals. His wound appears to be healing well. He will be discharged today. (2) Essential hypertension Priority: Secondary Status: Chronic Comments: The patient was counseled regarding atherosclerotic risk factor reduction. (3) Tobacco abuse Priority: Secondary Status: Chronic Comments: The patient was counseled regarding smoking cessation. (4) Coronary artery disease Priority: Secondary Status: Chronic Qualifiers: Coronary Disease-Associated Artery/Lesion type: [place] artery Three Affiliated vs. transplanted heart: [place] heart Associated angina: without angina Qualified Code(s): I25.10 - Atherosclerotic heart disease of [place] coronary artery without angina pectoris (5) Chronic kidney disease, stage III (moderate) Priority: Secondary Status: Chronic (6) Diabetes mellitus with peripheral angiopathy without gangrene Priority: Secondary Status: Chronic Qualifiers: Diabetes mellitus type: type 2 Diabetes mellitus intermediate school teacher insulin use: with longterm use Qualified Code(s): E11.51 - Type 2 diabetes mellitus with diabetic peripheral angiopathy without gangrene; Z79.4 - intermediate card tender (current) use of insulin - Hospital Course Hospital course: Mr. Escalona is a 68 year old male with history of diabetes, hypertension, hyperlipidemia, coronary artery disease, chronic kidney disease stage III and tobacco abuse. The patient presented with ulcerations on the right foot. He was found to have occluded femoral to femoral artery bypass graft as well as severe right femoral stenosis. He is taken to the operating room on 12/19/2018 where he underwent a femoral to femoral artery bypass graft thrombectomy as well as a right femoral endarterectomy. He tolerated the procedure well. On postoperative day #1 is hemodynamically stable. His wound was healing well. He had significant improvement in his right lower lower extremity including strong signals in his pedal vessels. He was discharged on postoperative day #1 in stable condition without competitions. - Time Spent with Patient Total time spent providing and/or coordinating discharge services: - Discharge Medications Prescriptions: RX: Clopidogrel [Plavix] 75 mg PO DAILY #30 tablet RX: OxyCODONE/APAP 5/325 [Percocet 5/325 MG] 1 each PO Q4H PRN 7 Days #25 tablet PRN Reason: Postoperative pain Home Medications: RX: Aspirin [Ecotrin] 325 mg PO 1400 05/10/17 [History] RX: Fenofibrate Nanocrystallized [Triglide] 160 mg PO 1400 08/30/18 [History] RX: Insulin Glargine,Hum.rec.anlog [Basaglar Kwikpen U-100] 60 unit SQ 139908/30/18 [History] RX: Atorvastatin [Lipitor] 40 mg PO 1400 12/19/18 [History] RX: Clopidogrel [Plavix] 75 mg PO 1400 12/19/18 [History] RX: Metformin HCl [Glucophage] 1,000 mg PO 1400 12/19/18 [History] RX: Metoprolol Succinate [Toprol Xl] 25 mg PO 1400 12/19/18 [History] RX: Pregabalin [Lyrica] 75 mg PO 1400 12/19/18 [History] RX: OxyCODONE/APAP 5/325 [Percocet 5/325 MG] 1 each PO Q4H PRN 7 Days #25 tablet 12/20/18 [Rx] RX: Clopidogrel [Plavix] 75 mg PO DAILY #30 tablet 12/21/18 [Rx] Allergies/Adverse Reactions: Allergy/AdvReac Type Severity Reaction Status Date / Time No Known Allergies Allergy Verified 12/19/18 14:18 Date of admission: 12/19/18 21:43 Primary care physician: Tung Hernandez MD Procedure(s) Performed: [id number] femoral to femoral artery bypass graft thrombectomy with revision and right deep femoral endarterectomy. Discharging clinician: Curtis Martinez Anticipated date of discharge: 12/20/18 Exam Vital Signs, Last 4 Hours Temp Pulse Resp BP Pulse Ox 12/20/18 07:02 98.5 F 78 18 93/56 99 12/20/18 05:29 98 F 64 16 122/55 100 General: Present: Conversant HEENT: Present: Pupils equal Cardiac: Present: Reg Rate and Rhythm Lungs: Present: Normal Breath Sounds Neuro: Present: Alert and responsive, No focal deficits noted Abdomen: Present: Soft, Non-tender Vascular: Present: Normal capillary refill, Pulse, diminished (Strong biphasic pedal signals in the dorsalis pedis artery and posterior tibial artery), Surgical incisions (Incision clean, dry and intact without erythema or drainage, no hematoma). Absent: Cyanosis, Edema Skin: Present: Wound/ulcer(s) (Right third fourth and fifth toe ulcers without gangrene, erythema or drainage) - Patient Status Disposition: Home, Self-Care Condition: Good Functional capacity at discharge: independent ambulation Overall status at discharge: patient is back to baseline - Discharge Instructions Instructions: Femoropopliteal Bypass (DC) Follow Up With: Curtis Martinez MD [Partnered Physician] - 01/01/19 3:30 pm Tung Hernandez MD [Primary Care Provider] - 12/24/18 2:30 pm Additional Instructions: May remove bandages and shower on 12/21/2018. Wash wounds gently and pat to dry. Apply dry gauze to right groin wound daily for 7 days. No tub baths or swimming until 01/18/2019. Call Dr. Martinez at [phone] with questions or concerns. - Diet and Activity Activity: increase activity as tolerated Diet: advance to your usual diet
[2018-12-20] MEDS: Beer can PO SCH ×2 (07:28→11:52)
[2018-12-20] MEDS: Insulin LISPRO 300 UNITS/3 ML VIAL SQ SCH ×2 (07:28→11:52)
[2018-12-20] MEDS: Metoprolol XL (24 HR) Succ 25 MG TAB.ER.24H PO SCH ×2 (07:29→16:14)
[2018-12-20] MEDS: *HR* HYDROcodone/Acet 5/325 mg TABLET PO PRN (07:45)
[2018-12-20 11:36] VITALS: BP 102/49
[2018-12-20] MEDS ORDERED: Aspirin Enteric Coated 325 MG Tablet PO SCH (14:00)
[2018-12-20] MEDS ORDERED: Fenofibrate 54 MG TABLET PO SCH (14:00)
[2018-12-20] MEDS ORDERED: Pregabalin 75 MG CAPSULE PO SCH (14:00)
== END 2018-12-20 16:17 | disposition home or self-care (01) | DRG 254 ==
LOC: SAMDAY 13:47 → 2NNU 21:43
PROVIDERS: ADMIT Surgery; ATTEND Surgery

== ENCOUNTER 2020-08-19 06:02 | Inpatient (IN) ==
[2020-08-19] MEDS ORDERED: CeFAZolin Syr 2,000MG/20 ML 2,000 MG/20 ML SYRINGE IVPB ONE (06:27)
[2020-08-19] MEDS ORDERED: Ringers Solution, Lactated 1,000 ML IVC SCH (06:30)
[2020-08-19] MEDS ORDERED: Heparin 1,000 UNITS/500 mL 500 ML ONE (06:36)
[2020-08-19] MEDS ORDERED: Vancomycin 1,000 MG VIAL ONE (06:36)
[2020-08-19] MEDS ORDERED: Lidocaine HCL 4 ML Topical Solution (Laryng-O-Jet Kit Sterile Pak) TP ONE (06:52)
[2020-08-19] MEDS ORDERED: *HR* Propofol 200 MG/20 ML VIAL IVP ONE (06:59)
[2020-08-19] MEDS ORDERED: *HR* FentaNYL (PF) 100 MCG/2 ML VIAL ONE (06:59)
[2020-08-19] MEDS ORDERED: *HR* Succinylcholine 200 MG/10 ML VIAL IVP ONE (07:00)
[2020-08-19] MEDS ORDERED: Lidocaine -MPF 2% 2 ML VIAL ONE (07:00)
[2020-08-19] MEDS ORDERED: Ondansetron 4 MG/2 ML VIAL ONE (07:00)
[2020-08-19] MEDS ORDERED: Acetaminophen IV 1,000 MG/100 ML INFUS..BTL IVPB ONE (07:00)
[2020-08-19] MEDS ORDERED: Dexamethasone 4 MG/ML VIAL ONE (07:00)
[2020-08-19] MEDS ORDERED: *HR* Rocuronium Bromide 50 MG/5 ML VIAL ONE ×2 (07:00→09:16)
[2020-08-19] MEDS ORDERED: *HR* HYDROmorphone PF 0.5 MG/0.5 ML SYRINGE IVP PRN (07:35)
[2020-08-19] MEDS ORDERED: Ondansetron 4 MG/2 ML VIAL IVP PRN ×2 (07:35→14:20)
[2020-08-19] MEDS ORDERED: *HR* Promethazine 25 MG/ML VIAL IVP PRN (07:35)
[2020-08-19] MEDS ORDERED: *HR* Meperidine 25 MG/ML SYRINGE IVP PRN (07:35)
[2020-08-19] MEDS ORDERED: *HR* PHENYLEPHRINE 1,000 MCG/10 ML SYRINGE IVP ONE (08:12)
[2020-08-19] MEDS ORDERED: *HR* Phenylephrine 10 MG/ML VIAL ONE (08:17)
[2020-08-19 08:38] LABS: ABG Base Excess -13 mEq/L (-2 to 3); ABG Chloride 128 mEq/L (98-107); ABG Glucose 31 mg/dL (60-95); ABG HCO3 13 mEq/L (21-27); ABG Ionized Calcium 0.35 mmol/L (1.15-1.35); ABG Oxygen Saturation 100 % (95-98); ABG PCO2 29 mmHg (35-45); ABG PH 7.25 pH Units (7.32-7.45); ABG PO2 235 mmHg (85-104); ABG TCO2 14 mEq/L (20-26)
[2020-08-19 08:52] LABS: ABG Base Excess -3 mEq/L (-2 to 3); ABG Chloride 109 mEq/L (98-107); ABG Glucose 67 mg/dL (60-95); ABG HCO3 23 mEq/L (21-27); ABG Ionized Calcium 1.16 mmol/L (1.15-1.35); ABG Oxygen Saturation 99 % (95-98); ABG PCO2 46 mmHg (35-45); ABG PH 7.32 pH Units (7.32-7.45); ABG PO2 164 mmHg (85-104); ABG TCO2 25 mEq/L (20-26)
[2020-08-19] MEDS ORDERED: *HR* Heparin 5,000 UNIT/ML VIAL ONE (09:19)
[2020-08-19] MEDS ORDERED: *HR* HYDROMORPHONE 2 MG/ML VIAL ONE (09:54)
[2020-08-19] MEDS ORDERED: *HR* HYDROcodone/Acet 5/325 mg TABLET PO PRN ×2 (14:20)
[2020-08-19] MEDS ORDERED: Naloxone 0.4 MG/ML INJ IVP PRN (14:20)
[2020-08-19] MEDS ORDERED: *HR* Labetalol 20 MG/4 ML SYRINGE IVP PRN (14:20)
[2020-08-19] MEDS ORDERED: *HR* OxyCODONE Immed Rel 5 MG TABLET PO PRN ×2 (14:20)
[2020-08-19] MEDS ORDERED: Acetaminophen 325 MG TABLET PO PRN ×2 (14:20)
[2020-08-19] MEDS: 0.9 % Sodium Chloride 1,000 ML IVC SCH (15:31)
[2020-08-19] MEDS: *HR* Metoprolol 5 MG/5 ML VIAL IVP SCH ×3 (16:38→23:47)
[2020-08-19] MEDS: CeFAZolin 2 GM/120 ML BAG IVPB SCH ×2 (17:48→23:47)
[2020-08-19] MEDS: Gabapentin 400 MG CAPSULE PO SCH (19:44)
[2020-08-19] MEDS ORDERED: Vancomycin 1,250 MG/262.5 ML IV.SOLN IVPB ONE (20:00)
[2020-08-20] MEDS: *HR* Metoprolol 5 MG/5 ML VIAL IVP SCH (04:55)
[2020-08-20 05:30] LABS: Basophils # 0.1 K/mcL (0.0-0.2); Basophils % 0.6 %; Eosinophils % 0.1 %; Hematocrit 39.2 % (37.5-50.1); Hemoglobin 12.4 g/dL (12.9-16.9); Immature Granulocytes % 0.5 % (0-4); Lymphocytes # 1.6 K/mcL (0.6-4.6); Lymphocytes % 19.5 %; Mean Corpuscular HGB Conc 31.6 g/dL (31.6-35.5); Mean Corpuscular Hemoglobin 30.7 pg (28.0-33.3); Mean Platelet Volume 10.8 fL (9.4-12.4); Monocytes # 0.9 K/mcL (0.0-1.3); Monocytes % 10.9 %; Neutrophils # 5.8 K/mcL (1.6-8.9); Platelet Count 168 K/mcL (140-400); Red Blood Count 4.04 M/mcL (4.19-5.50); Red Cell Distribution Width 13.7 % (11.5-14.5); Segmented Neutrophils % 68.4 %; White Blood Count 8.4 K/mcL (4.3-11.1)
[2020-08-20 05:44] LABS: BUN/Creatinine Ratio 21 (6-26); Blood Urea Nitrogen 25 mg/dL (8-23); Calcium 8.1 mg/dL (8.6-10.3); Carbon Dioxide 21 mEq/L (23-29); Chloride 112 mEq/L (98-107); Glucose 97 mg/dL (70-105); Osmolality,Calculated 294 (280-300); Potassium 3.9 mEq/L (3.5-5.1); Sodium 140 mEq/L (136-145); eGFR For African Americans > 60 (> 60); eGFR For Non-African Americans > 60 (> 60)
[2020-08-20] MEDS ORDERED: *HR* Heparin 5,000 UNIT/ML VIAL SQ SCH ×2 (06:00)
[2020-08-20] MEDS ORDERED: Fenofibrate 54 MG TABLET PO SCH (09:00)
[2020-08-20] MEDS ORDERED: Aspirin Enteric Coated 325 MG Tablet PO SCH (09:00)
[2020-08-20] MEDS ORDERED: Metoprolol XL (24 HR) Succ 25 MG TAB.ER.24H PO SCH (09:00)
[2020-08-20] MEDS ORDERED: Cholecalciferol (D-3) 1,000 UNIT (25MCG) TABLET PO SCH (09:00)
[2020-08-20] MEDS ORDERED: Cyanocobalamin (B-12) 1,000 MCG TABLET PO SCH (09:00)
[2020-08-20] MEDS: Gabapentin 400 MG CAPSULE PO SCH (09:10)
[2020-08-20] MEDS: 0.9 % Sodium Chloride 1,000 ML IVC SCH (09:11)
[2020-08-20 11:21] VITALS: BP 144/86
== END 2020-08-20 15:54 | disposition home or self-care (01) | DRG 253 ==
LOC: SAMDAY 06:02 → 2NNU 14:12 → UNDODISIN 08-20 13:53
PROVIDERS: ADMIT Surgery; ATTEND Surgery
PROC: VASFFBG (ICD-10-PCS; 2020-08-19 07:45)

== ENCOUNTER 2020-11-26 07:01 | Inpatient (IN) ==
[2020-11-26] MEDS ORDERED: Vancomycin 1,000 MG VIAL ONE (07:26)
[2020-11-26] MEDS ORDERED: Heparin 1,000 UNITS/500 mL 500 ML ONE ×2 (07:26→08:16)
[2020-11-26] MEDS ORDERED: Vancomycin 1,250 MG/262.5 ML IV.SOLN IVPB ONE ×2 (07:48→22:00)
[2020-11-26] MEDS ORDERED: CeFAZolin Syr 2,000MG/20 ML 2,000 MG/20 ML SYRINGE IVPB ONE (07:48)
[2020-11-26] MEDS ORDERED: 0.9 % Sodium Chloride 500 ML IVC SCH (08:00)
[2020-11-26] MEDS ORDERED: Ringers Solution, Lactated 1,000 ML IVC SCH ×2 (08:00→08:15)
[2020-11-26] MEDS ORDERED: Acetaminophen IV 1,000 MG/100 ML BAG IVPB ONE (08:08)
[2020-11-26] MEDS ORDERED: Gabapentin 300 MG CAPSULE PO ONE (08:08)
[2020-11-26] MEDS ORDERED: Famotidine 20 MG/2 ML VIAL IVP ONE (08:08)
[2020-11-26] MEDS ORDERED: Promethazine 6.25 MG in Water for inj. (sterile) 20 ML IVPB PRN (08:09)
[2020-11-26] MEDS ORDERED: *HR* OxyCODONE Immed Rel 5 MG TABLET PO PRN (08:09)
[2020-11-26] MEDS ORDERED: *HR* HYDROmorphone PF 0.5 MG/0.5 ML SYRINGE IVP PRN (08:09)
[2020-11-26] MEDS ORDERED: Ondansetron 4 MG/2 ML VIAL IVP PRN ×2 (08:09→14:37)
[2020-11-26] MEDS ORDERED: *HR* Metoprolol 5 MG/5 ML VIAL IVP PRN (08:09)
[2020-11-26] MEDS ORDERED: Albuterol 2.5 MG/3 ML NEBULIZER IH PRN (08:09)
[2020-11-26] MEDS ORDERED: *HR* Propofol 200 MG/20 ML VIAL IVP ONE (08:12)
[2020-11-26] MEDS ORDERED: *HR* FentaNYL (PF) 100 MCG/2 ML VIAL ONE ×3 (08:12→12:41)
[2020-11-26] MEDS ORDERED: Vancomycin 1,000 MG, Sodium Chloride IRRigation 1,000 ML IR ONE (08:45)
[2020-11-26] MEDS ORDERED: Lidocaine -MPF 2% 2 ML VIAL ONE (09:28)
[2020-11-26] MEDS ORDERED: *HR* Midazolam HCl 2 MG/2 ML VIAL ONE (09:28)
[2020-11-26] MEDS ORDERED: Lidocaine HCL 4 ML Topical Solution (Laryng-O-Jet Kit Sterile Pak) TP ONE (09:53)
[2020-11-26] MEDS ORDERED: EPHEDrine 50 MG/ML VIAL ONE (10:07)
[2020-11-26] MEDS ORDERED: Ondansetron 4 MG/2 ML VIAL ONE (10:07)
[2020-11-26] MEDS ORDERED: *HR* Rocuronium Bromide 50 MG/5 ML VIAL ONE (10:13)
[2020-11-26] MEDS ORDERED: *HR* Heparin 5,000 UNIT/ML VIAL ONE (11:11)
[2020-11-26] MEDS ORDERED: 0.9 % Sodium Chloride 1,000 ML IVC SCH (14:37)
[2020-11-26] MEDS ORDERED: *HR* Labetalol 20 MG/4 ML SYRINGE IVP PRN (14:37)
[2020-11-26] MEDS ORDERED: Naloxone 0.4 MG/ML INJ IVP PRN (14:37)
[2020-11-26] MEDS ORDERED: D5% in Water 1,000 ML IVC PRN (14:37)
[2020-11-26] MEDS ORDERED: Acetaminophen 325 MG TABLET PO PRN (14:37)
[2020-11-26] MEDS ORDERED: *HR* Dextrose 50 % in Water (Vial) 50 ML VIAL IVP PRN (14:37)
[2020-11-26] MEDS ORDERED: Dextrose Gel 15 GM/37.5 ML TUBE PO PRN ×2 (14:37)
[2020-11-26] MEDS: *HR* Metoprolol 5 MG/5 ML VIAL IVP SCH ×2 (16:24→18:06)
[2020-11-26] MEDS: Insulin LISPRO 300 UNITS/3 ML VIAL SUBQ SCH (16:26)
[2020-11-26] MEDS: *HR* HYDROcodone/Acet 5/325 mg TABLET PO PRN (16:26)
[2020-11-26] MEDS: CeFAZolin 2 GM/120 ML BAG IVPB SCH (18:05)
[2020-11-26] MEDS: Gabapentin 400 MG CAPSULE PO SCH (20:37)
[2020-11-26] MEDS: *HR* OxyCODONE Immed Rel 5 MG TABLET PO PRN (20:37)
[2020-11-26] MEDS ORDERED: Insulin LISPRO 300 UNITS/3 ML VIAL SUBQ SCH (21:00)
[2020-11-27] MEDS: *HR* Metoprolol 5 MG/5 ML VIAL IVP SCH ×3 (00:30→11:35)
[2020-11-27] MEDS: *HR* HYDROcodone/Acet 5/325 mg TABLET PO PRN ×2 (00:31→07:53)
[2020-11-27] MEDS: *HR* OxyCODONE Immed Rel 5 MG TABLET PO PRN ×2 (03:57→10:42)
[2020-11-27] MEDS: CeFAZolin 2 GM/120 ML BAG IVPB SCH (03:57)
[2020-11-27 04:48] LABS: Basophils % 0.2 %; Eosinophils % 0.1 %; Hematocrit 35.4 % (37.5-50.1); Immature Granulocytes % 0.5 % (0-4); Lymphocytes # 1.3 K/mcL (0.6-4.6); Lymphocytes % 15.3 %; Mean Corpuscular HGB Conc 31.9 g/dL (31.6-35.5); Mean Corpuscular Hemoglobin 29.8 pg (28.0-33.3); Mean Corpuscular Volume 93.4 fL (83.0-100.0); Mean Platelet Volume 11.2 fL (9.4-12.4); Monocytes # 0.8 K/mcL (0.0-1.3); Monocytes % 9.8 %; Neutrophils # 6.2 K/mcL (1.6-8.9); Platelet Count 184 K/mcL (140-400); Red Blood Count 3.79 M/mcL (4.19-5.50); Red Cell Distribution Width 13.9 % (11.5-14.5); Segmented Neutrophils % 74.1 %; White Blood Count 8.4 K/mcL (4.3-11.1)
[2020-11-27 04:49] LABS: Hemoglobin 11.3 g/dL (12.9-16.9)
[2020-11-27 05:05] LABS: BUN/Creatinine Ratio 18 (6-26); Blood Urea Nitrogen 23 mg/dL (8-23); Calcium 8.6 mg/dL (8.6-10.3); Carbon Dioxide 22 mEq/L (23-29); Chloride 107 mEq/L (98-107); Glucose 108 mg/dL (70-105); Osmolality,Calculated 290 (280-300); Potassium 4.2 mEq/L (3.5-5.1); Sodium 138 mEq/L (136-145); eGFR For African Americans > 60 (> 60); eGFR For Non-African Americans 55 (> 60)
[2020-11-27] MEDS ORDERED: *HR* Heparin 5,000 UNIT/ML VIAL SQ SCH ×2 (06:00)
[2020-11-27] MEDS: Insulin LISPRO 300 UNITS/3 ML VIAL SUBQ SCH ×2 (07:36→13:06)
[2020-11-27] MEDS: Gabapentin 400 MG CAPSULE PO SCH (07:54)
[2020-11-27] MEDS ORDERED: Fenofibrate 54 MG TABLET PO SCH (09:00)
[2020-11-27] MEDS ORDERED: Cholecalciferol (D-3) 1,000 UNIT (25MCG) TABLET PO SCH (09:00)
[2020-11-27] MEDS ORDERED: Aspirin Enteric Coated 81 MG Tablet PO SCH (09:00)
[2020-11-27] MEDS ORDERED: Cyanocobalamin (B-12) 1,000 MCG TABLET PO SCH (09:00)
[2020-11-27] MEDS ORDERED: Metoprolol XL (24 HR) Succ 25 MG TAB.ER.24H PO SCH (09:00)
[2020-11-27 11:25] VITALS: BP 109/96
== END 2020-11-27 15:30 | disposition home or self-care (01) | DRG 254 ==
LOC: SAMDAY 07:01 → 2NNU 14:14
PROVIDERS: ADMIT Surgery; ATTEND Surgery